=== PATIENT | male | born 1945 | race Caucasian/White ===

== ENCOUNTER 2016-10-30 15:55 | Emergency (ER) | payer OTHER, MEDICAID ==
[~2016-10-30] VITALS: Ht 180.3 cm; Wt 57.0 kg
[~2016-10-30 15:55] MED LIST: HYDR10TA16 PO
[2016-10-30 15:59] VITALS: BP 130/79; PULSE 74; RESP 18; TEMP 97.9; O2SAT 96
[2016-10-30] MEDS ORDERED: HYDR-3535 PO ×2 (16:35→18:26)
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
[2016-10-30] MEDS ORDERED: MORPHINE SULFATE 8 MG/ML INJ IM ONE (16:45)
[2016-10-30 18:11] VITALS: BP 133/74; PULSE 84; RESP 16; O2SAT 97
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
[2016-10-30 18:15] VITALS: RESP 16
[2016-10-30] MEDS ORDERED: ACETAMINOPHEN/HYDROcodone 325 MG/10 MG TAB PO ONE (18:15)
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
== END 2016-10-30 19:02 | disposition home or self-care (01) ==
LOC: PHED 15:55
DX: S42.035A Nondisplaced fracture of lateral end of left clavicle, initial encounter for closed fracture (principal); M25.562 Pain in left knee; V11.4XXA Pedal cycle driver injured in collision with other pedal cycle in traffic accident, initial encounter; Y93.55 Activity, bike riding; Y92.9 Unspecified place or not applicable
CPT/HCPCS: 29240; 71010; 73010; 73030; 73564; 96372; 99283; J2270